=== PATIENT | female | born 1975 | race African-American/Black ===

== ENCOUNTER 2017-03-07 03:55 | Emergency (ER) | payer SELFPAY ==
[~2017-03-07] VITALS: Ht 172.7 cm; Wt 140.0 kg
[~2017-03-07 03:55] MED LIST: ALBU0.63 NEB; PRED-503 PO; VENTAER INH
[2017-03-07 04:00] VITALS: RESP 20; O2SAT 95
[2017-03-07 04:05] VITALS: BP 130/68; PULSE 107; RESP 18; TEMP 98.2; O2SAT 95
[2017-03-07] MEDS ORDERED: ADVA250A INH (04:06)
[2017-03-07 04:30] VITALS: BP 129/80; PULSE 102; RESP 20; O2SAT 94
[2017-03-07] MEDS ORDERED: SODIUM CHLORIDE 0.9% FLUSH 10 ML FLUSH IVF PRN (04:30)
[2017-03-07] MEDS ORDERED: methylPREDNISolone SOD SUCC 125 MG/2 ML VIAL IVP ONE (04:30)
[2017-03-07] MEDS: RESP: ALBUTEROL 2.5 MG/IPRATROPIUM 0.5 MG NEB (SCH) INH ×3 (04:34→04:49)
[2017-03-07 04:55] LABS: AUTOMATED NEUTROPHIL # 8.7 TH/MM3 (1.8-7.7); BASOPHIL # 0.1 TH/MM3 (0-0.2); BASOPHIL % 0.9 % (0.0-2.0); EOSINOPHIL # 0.8 TH/MM3 (0-0.4); EOSINOPHIL % 4.9 % (0.0-4.0); HEMATOCRIT 32.7 % (35.0-46.0); LYMPH % 26.4 % (9.0-44.0); MEAN CELL VOLUME 74.8 FL (80.0-100.0); MEAN CORPUSCULAR HEMOGLOBIN 23.3 PG (27.0-34.0); MEAN CORPUSCULAR HGB CONC 31.1 % (32.0-36.0); MONO % 11.1 % (0.0-8.0); NEUT % 56.7 % (16.0-70.0); PLATELET COUNT 368 TH/MM3 (150-450); RED BLOOD COUNT 4.38 MIL/MM3 (4.00-5.30); RED CELL DISTRIBUTION WIDTH 24.5 % (11.6-17.2); WHITE BLOOD COUNT 15.3 TH/MM3 (4.0-11.0)
[2017-03-07 05:00] VITALS: BP 135/85; PULSE 108; RESP 18; O2SAT 95
[2017-03-07 05:03] LABS: POTASSIUM 3.2 MEQ/L (3.5-5.1)
[2017-03-07 05:04] LABS: HEMO FLAGS DIFF FINAL
[2017-03-07 05:06] LABS: BICARBONATE 24.7 MEQ/L (21.0-32.0)
[2017-03-07] MEDS ORDERED: PRED50 PO (05:15)
--- NOTE | 2017-03-07 05:18 | PD ---
HPI Chief Complaint: Respiratory Symptoms Time Seen by Provider: 04:12 Travel History International Travel<30 days: No Contact w/Intl Traveler<30days: No Traveled to known affect area: No History of Present Illness HPI The patient is a 41-year-old female that has been short of breath since 6 PM yesterday. She does have a history of asthma. She does have a nebulizer machine at home and took several treatments tonight, the last one being 12 midnight. The patient does not smoke. She denies any fever. The only chest discomfort she has is her usual tightness sensation that she always has with asthma. Her last steroid course was approximately 2 months ago. She does not have any history of heart disease or congestive heart failure. PFSH Past Medical History Asthma: Yes Blood Disorders: No Heart Rhythm Problems: No Cancer: No Cardiovascular Problems: No High Cholesterol: No Chest Pain: No Congestive Heart Failure: No Diabetes: No Diminished Hearing: No Endocrine: No Hypertension: Yes Immune Disorder: No Musculoskeletal: No Neurologic: No Psychiatric: No Respiratory: Yes (ASTHMA) Immunizations Current: Yes Pneumonia: Yes Thyroid Disease: No Tetanus Vaccination: < 5 Years ?: Not Menopausal: Yes : 5 Para: 5 Ectopic : No Ovarian Cysts: No Dilation and Curettage (D&C): No Tubal Ligation: Yes (1994) Past Surgical History Cardiac Surgery: 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) Section: No Hysterectomy: No Other Surgery: Yes (open heart age 3, tubal 1994) Family History Family Hypercholesterolemia: Yes Social History Alcohol Use: No Tobacco Use: No (QUIT 2014) Substance Use: No Allergies-Medications (Allergen,Severity, Reaction): Coded Allergies: No Known Allergies (Unverified , 11/10/16) Reported Meds & Prescriptions Reported Meds & Active Scripts Active Macrobid (Nitrofurantoin Monoh/Nitrofur Macro) 100 Mg Cap 100 Mg PO BID 10 Days Flagyl (Metronidazole) 500 Mg Tab 500 Mg PO TID 7 Days Prednisone 50 Mg Tab 50 Mg PO BID Reported Advair Diskus Inh (Fluticasone-Salmeterol Inh) 250-50 Mcg/Blist Aer 1 Puff INH BID Rinse mouth after use. Ventolin Hfa 18 GM Inh (Albuterol Sulfate) 90 Mcg/Act Aer 2 Puff INH Q4-6H PRN Albuterol Neb (Albuterol Sulfate) 0.63 Mg/3 Ml Neb 0.63 Mg NEB Q4HR NEB PRN Review of Systems Except as stated in HPI: all other systems reviewed are Neg Physical Exam Narrative GENERAL: The patient is alert, obese, oriented 3 and slight respiratory distress. Her vital signs are normal except for a pulse rate of 107. Oximetry is 95% on room air. SKIN: Focused skin assessment warm/dry. HEAD: Atraumatic. Normocephalic. EYES: Pupils equal and round. No scleral icterus. No injection or drainage. ENT: No nasal bleeding or discharge. Mucous membranes pink and moist. NECK: Trachea midline. No JVD. CARDIOVASCULAR: Regular rate and rhythm. No murmur appreciated. RESPIRATORY: No accessory muscle use. Bilateral wheezes are heard in all lung norris. Breath sounds equal bilaterally. GASTROINTESTINAL: Abdomen soft, non-tender, nondistended. Hepatic and splenic margins not palpable. MUSCULOSKELETAL: No obvious deformities. No clubbing. No cyanosis. No edema. NEUROLOGICAL: Awake and alert. No obvious cranial nerve deficits. Motor grossly within normal limits. Normal speech. PSYCHIATRIC: Appropriate mood and affect; insight and judgment normal. Data Data Last Documented VS Vital Signs Date Time Temp Pulse Resp B/P Pulse Ox O2 Delivery O2 Flow Rate FiO2 03/07/17 05:00 108 18 135/85 95 Room Air 03/07/17 04:05 98.2 Orders Complete Blood Count With Diff (03/07/17 04:28) Basic Metabolic Panel (Bmp) (03/07/17 04:28) Urinalysis - C+S If Indicated (03/07/17 04:28) Iv Access Insert/Monitor (03/07/17 04:28) Ecg Monitoring (03/07/17 04:28) Oximetry (03/07/17 04:28) Oxygen Administration (03/07/17 04:28) Sodium Chloride 0.9% Flush (Ns Flush) (03/07/17 04:30) Methylprednisolone So Succ Inj (Solumedr (03/07/17 04:30) Albuterol-Ipratropium Neb (Duoneb Neb) (03/07/17 04:30) Resp Peak Flow Rate (03/07/17 ) Chest, Pa & Lat (03/07/17 05:18) Urine Culture (03/07/17 05:15) Metronidazole (Flagyl) (03/07/17 05:45) Nitrofurantoin Monohyd Macrocr (Macrobid (03/07/17 05:45) Potassium Chloride (Kcl) (03/07/17 06:15) Labs Laboratory Tests Test 03/07/17 03/07/17 04:45 05:15 White Blood Count 15.3 TH/MM3 Red Blood Count 4.38 MIL/MM3 Hemoglobin 10.2 GM/DL Hematocrit 32.7 % Mean Corpuscular Volume 74.8 FL Mean Corpuscular Hemoglobin 23.3 PG Mean Corpuscular Hemoglobin 31.1 % Concent Red Cell Distribution Width 24.5 % Platelet Count 368 TH/MM3 Mean Platelet Volume 7.4 FL Neutrophils (%) (Auto) 56.7 % Lymphocytes (%) (Auto) 26.4 % Monocytes (%) (Auto) 11.1 % Eosinophils (%) (Auto) 4.9 % Basophils (%) (Auto) 0.9 % Neutrophils # (Auto) 8.7 TH/MM3 Lymphocytes # (Auto) 4.0 TH/MM3 Monocytes # (Auto) 1.7 TH/MM3 Eosinophils # (Auto) 0.8 TH/MM3 Basophils # (Auto) 0.1 TH/MM3 CBC Comment DIFF FINAL Differential Comment Sodium Level 145 MEQ/L Potassium Level 3.2 MEQ/L Chloride Level 112 MEQ/L Carbon Dioxide Level 24.7 MEQ/L Anion Gap 8 MEQ/L Blood Urea Nitrogen 13 MG/DL Creatinine 0.92 MG/DL Estimat Glomerular Filtration 81 ML/MIN Rate Random Glucose 84 MG/DL Calcium Level 8.5 MG/DL Urine Color YELLOW Urine Turbidity CLOUDY Urine pH 5.5 Urine Specific Bradford 1.027 Urine Protein NEG mg/dL Urine Glucose (UA) NEG mg/dL Urine Ketones NEG mg/dL Urine Occult Blood TRACE Urine Nitrite NEG Urine Bilirubin NEG Urine Leukocyte Esterase SMALL Urine RBC 3-5 /hpf Urine WBC 25-49 /hpf Urine Squamous Epithelial > 8 /hpf Cells Urine Bacteria MOD /hpf Urine Trichomonas PRESENT Microscopic Urinalysis Comment CULTURE INDICATED MDM Medical Decision Making Medical Screen Exam Complete: Yes Emergency Medical Condition: Yes Medical Record Reviewed: Yes Interpretation(s) The EKG shows sinus tachycardia with a rate of 106 but is otherwise normal. The CBC shows a white count of 15,300 with a hemoglobin of 10 and hematocrit of 33. The urine shows cloudy turbidity, trace occult blood, specific gravity 1.027 with small leukocyte Estrace, 25-49 white cells and moderate bacteria and trichomonas is present. Culture is indicated. The basic metabolic profile shows potassium of 3.2, GFR of 81 but is otherwise unremarkable. The chest x- ray is normal. Differential Diagnosis Acute asthma, bronchitis, hypoxemia, pneumoniaunlikely, electrolyte disorder, urinary tract infection Narrative Course The patient does not have a fever and is clearing up with the DuoNeb treatments. Pneumonia is unlikely at this time. The peak flow was 110 pre- treatment and 150 posttreatment. Oximetry remains at 95%. The patient does have a urinary tract infection and, in addition, Trichomonas infection. The Trichomonas is likely a Trichomonas vaginitis. Diagnosis Primary Impression: Asthma Additional Impressions: Bronchitis UTI (urinary tract infection) Trichomonas vaginitis Additional Instructions: We found that you have a trichomonas infection. A trichomonas infection is a sexually transmitted disease and, therefore, your partner needs to be treated simultaneously. Also, Med/Other Pt SpecificInfo: Prescription(s) given Scripts Nitrofurantoin Monohydrate Macrocrystals (Macrobid)100 Mg [id number] Mg PO BID 10 Days Ref 0 Prov:Oscar Mars MD 03/07/17 Metronidazole (Flagyl)500 Mg [id number] Mg PO TID 7 Days Ref 0 Prov:Oscar Mars MD 03/07/17 Prednisone 50 Mg Tab50 Mg PO BID #12 TAB Ref 0 Prov:Oscar Mars MD 03/07/17 Disposition: 01 DISCHARGE HOME Condition: Stable Oscar Mars MD Mar 07, 2017 05:18
[2017-03-07 05:28] LABS: BLOOD, URINE TRACE (NEG); GLUCOSE,URINE NEG (NEG); KETONE, URINE NEG (NEG); NITRITE,URINE NEG (NEG); PH, URINE 5.5 (5.0-8.5)
[2017-03-07 05:33] LABS: URINE COLOR YELLOW (YELLW/STRAW)
[2017-03-07 05:34] LABS: BACTERIA, URINE MOD /hpf; SQUAMOUS EPITHELIAL CELL URINE > 8 /hpf (0-5)
[2017-03-07 05:35] LABS: COMMENT (UR) CULTURE INDICATED; CULTURE IF INDICATED CULTURE INDICATED
[2017-03-07] MEDS ORDERED: MACR100C2 PO (05:41)
[2017-03-07] MEDS ORDERED: METR-1 PO (05:41)
[2017-03-07] MEDS ORDERED: NITROFURANTOIN MONOHYD MACROCR 100 MG CAP PO ONE (05:45)
[2017-03-07] MEDS ORDERED: metroNIDAZOLE 500 MG TAB PO ONE (05:45)
--- NOTE | 2017-03-07 05:52 | RADHPO ---
EXAM DATE/TIME: 03/07/2017 05:30 [facility] COMPARISON: CHEST PA & LAT, March 07, 2015, 11:55. INDICATIONS : Wheezing. 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 The cardiomediastinal contours are unremarkable. Osseous structure s are intact. CONCLUSION: Normal examination. Dominic Qureshi Jr., MD on March 07, 2017 at 5:50 Board Certified Radiologist. This report was verified electronically.
[2017-03-07 06:00] VITALS: BP 118/61; PULSE 102; RESP 18; O2SAT 96
[2017-03-07] MEDS ORDERED: RESP: ALBUTEROL 2.5 MG/IPRATROPIUM 0.5 MG NEB (SCH) INH ONE (06:15)
[2017-03-07] MEDS ORDERED: POTASSIUM CHLORIDE 20 MEQ CONTROLLED RELEASE TAB PO ONE (06:15)
--- NOTE | 2017-03-08 14:23 | EKG ---
Date Performed: 03/07/2017 Time Performed: 04:05:26 PTAGE: 41 years EKG: Sinus tachycardia Short CA interval Borderline ECG NO PREVIOUS TRACING DOCTOR: Ender Gordon Interpretating Date/Time 03/08/2017 14:21:39
== END 2017-03-07 06:43 | disposition home or self-care (01) ==
LOC: PHED 03:55
DX: J45.909 Unspecified asthma, uncomplicated (principal); J40 Bronchitis, not specified as acute or chronic; N39.0 Urinary tract infection, site not specified; A59.01 Trichomonal vulvovaginitis; I10 Essential (primary) hypertension; Z87.891 Personal history of nicotine dependence; R00.0 Tachycardia, unspecified
CPT/HCPCS: 71020; 80048; 81001; 85025; 87086; 93005; 94640; 94664; 94799; 96374; 99283; J2930

== ENCOUNTER 2017-09-15 15:36 | Emergency (ER) | payer SELFPAY ==
[~2017-09-15 15:36] MED LIST changes: +ADVA250A INH; +MACR100C2 PO; +METR-1 PO; -PRED-503 PO; +PRED50 PO
[2017-09-15 15:44] VITALS: BP 147/76; PULSE 91; RESP 20; TEMP 98.8; O2SAT 97
[2017-09-15] MEDS ORDERED: predniSONE 20 MG TAB PO ONE (16:15)
[2017-09-15] MEDS ORDERED: RESP: ALBUTEROL 2.5 MG/IPRATROPIUM 0.5 MG NEB (SCH) NEB ONE (16:15)
--- NOTE | 2017-09-15 16:22 | PD ---
HPI Chief Complaint: Respiratory Symptoms Time Seen by Provider: 15:59 Travel History International Travel<30 days: No Contact w/Intl Traveler<30days: No Traveled to known affect area: No History of Present Illness HPI The patient is a 41-year-old [place] female who presents to the emergency department for asthma exacerbation. The patient states she developed some shortness of breath wheezing earlier today. The patient used her nebulizers at home, however, continues to have symptoms. She does note a one day history of dry nonproductive cough and nasal congestion, thinks a possible viral URI triggered her symptoms. The patient states the last time she was seen in the emergency department was 2 months ago for her asthma. She has been hospitalized on a few occasions for her asthma but denies any previous intubations. The patient did try her nebulizers at home earlier today with minimal relief of her symptoms. 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 She denies any fever, chills, or sweats. She denies any recent hospitalizations, surgeries, travel, or history of pulmonary embolism DVT. She denies any history congestive heart failure or cardiomyopathy. 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 Ventolin Hfa 18 GM Inh (Albuterol Sulfate) 90 Mcg/Act Aer 2 Puff INH Q4-6H PRN Albuterol Neb (Albuterol Sulfate) 0.63 Mg/3 Ml Neb 0.63 Mg NEB Q4HR NEB PRN Review of Systems Except as stated in HPI: all other systems reviewed are Neg General / Constitutional: No: Fever HENT: No: Lightheadedness Cardiovascular: No: Chest Pain or Discomfort Respiratory: Positive: Cough, Shortness of Breath, Wheezing Gastrointestinal: No: Nausea, Vomiting Musculoskeletal: No: Edema Physical Exam Narrative GENERAL: Awake, alert, pleasant 41 year-old female who appears her stated age and is in mild respiratory distress. Mildly short of breath with conversation. HEAD: Atraumatic. Normocephalic. EYES: Pupils equal and round. No scleral icterus. No injection or drainage. ENT: No nasal bleeding or discharge. Mucous membranes pink and moist. NECK: Trachea midline. No JVD. CARDIOVASCULAR: Regular rate and rhythm. No murmur appreciated. Heart rate in the 90s. RESPIRATORY: Mild tachypnea with a respiratory rate of 22. Diffuse wheezing with prolonged expiratory phase. GASTROINTESTINAL: Abdomen soft, non-tender, nondistended. MUSCULOSKELETAL: No obvious deformities. No clubbing. No cyanosis. No edema. Calves are soft bilaterally. NEUROLOGICAL: Awake and alert. No obvious cranial nerve deficits. Motor grossly within normal limits. Normal speech. PSYCHIATRIC: Appropriate mood and affect; insight and judgment normal. Data Data Last Documented VS Vital Signs Date Time Temp Pulse Resp B/P (MAP) Pulse Ox O2 Delivery O2 Flow Rate FiO2 09/15/17 16:38 20 97 Room Air 09/15/17 15:44 98.8 91 147/76 (99) Orders Orders Prednisone (Deltasone) (09/15/17 16:15) Albuterol-Ipratropium Neb (Duoneb Neb) (09/15/17 16:15) Chest, Single Ap (09/15/17 ) [facility] Medical Decision Making Medical Screen Exam Complete: Yes Emergency Medical Condition: Yes Medical Record Reviewed: Yes Interpretation(s) Chest x-ray reveals no acute disease Differential Diagnosis Differential diagnosis includes asthma exacerbation, bronchitis, pneumonia, pulmonary embolism, cardiomyopathy, congestive heart failure. Narrative Course The patient was placed on cardiac telemetry monitoring and continuous pulse oximetry monitoring. The patient was administered prednisone 60 mg orally and duo nebs 2. Chest x-ray was obtained. Chest x-ray was unremarkable, no acute disease. The patient was reevaluated at 4:50 PM, her symptoms had significantly improved. The patient's breath sounds were reassessed, significant reduction in wheezing and improved airway movement. I do discussion with the patient regarding 23 hour observation versus discharge home , the patient states she feels better would like to be discharged home. She has plenty of nebulizers per her report at home, I will write for tapering dose of prednisone. 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 Return if symptoms worsen or progress. Diagnosis Primary Impression: Asthma exacerbation Qualified Codes: J45.21 - Mild intermittent asthma with (acute) exacerbation Patient Instructions: General Instructions Additional Instructions: Medications as directed. Follow-up with your primary physician. Return if symptoms worsen or progress. Med/Other Pt SpecificInfo: Prescription(s) given Scripts Prednisone (48) 10 mg tab Dose Pack (Prednisone (48) 10 mg tab Dose Pack) 10 Mg Dspk 10 MG PO DIRECTED for Inflammation, #1 DSPK 0 Refills Prov: Hunter Beckett MD 09/15/17 Disposition: DISCHARGE HOME Condition: Stable Hunter Beckett MD Sep 15, 2017 16:22
--- NOTE | 2017-09-15 16:44 | RADRPT ---
EXAM DATE/TIME: 09/15/2017 16:20 [facility] COMPARISON: CHEST SINGLE AP, November 10, 2016, 13:51. INDICATIONS : Shortness of breath for 2 days MEDICAL HISTORY : Asthma SURGICAL HISTORY : None. ENCOUNTER: Initial ACUITY: 2 days PAIN SCORE: 0/10 LOCATION: Bilateral chest FINDINGS: A single view of the chest demonstrates the lungs to be symmetrically aerated without evidence of mas s, infiltrate or effusion. The cardiomediastinal contours are unremarkable. Osseous structures are intact. CONCLUSION: No acute disease. Bruce Sargent MD FACR on September 15, 2017 at 16:42 Board Certified Radiologist. This report was verified electronically.
[2017-09-15] MEDS ORDERED: PRED10PA2 PO (16:52)
[2017-09-15 17:26] VITALS: BP 123/70
== END 2017-09-15 17:28 | disposition home or self-care (01) ==
LOC: PHED 15:36
DX: J45.21 Mild intermittent asthma with (acute) exacerbation (principal); I10 Essential (primary) hypertension; Z87.891 Personal history of nicotine dependence
CPT/HCPCS: 71010; 94664; 99283; J7512